=== PATIENT | female | born 1940 | race Asian ===

== ENCOUNTER 2017-02-22 06:06 | Day surgery (SDC) | payer MEDICARE, OTHER ==
[~2017-02-22] VITALS: Ht 139.7 cm; Wt 55.0 kg
[~2017-02-22 06:06] MED LIST: BENZ-26 PO; CLAR250T3 PO
[2017-02-22] MEDS ORDERED: SODIUM CHLORIDE 0.9% 1,000 ML IV ONE ×2 (06:21→06:30)
[2017-02-22] MEDS ORDERED: MECL-111 PO (07:01)
[2017-02-22] MEDS ORDERED: CLOP75 PO (07:01)
[2017-02-22] MEDS ORDERED: CIPR500S4 PO (07:01)
[2017-02-22] MEDS ORDERED: BUDE10.2 IH (07:01)
[2017-02-22] MEDS ORDERED: MONT10TA21 PO (07:01)
[2017-02-22] MEDS ORDERED: ACET500C4 PO (07:01)
[2017-02-22] MEDS ORDERED: CELE200 PO (07:01)
[2017-02-22] MEDS ORDERED: BACL10TA PO (07:01)
[2017-02-22] MEDS ORDERED: BENZ200C45 PO (07:01)
[2017-02-22] MEDS ORDERED: MIDAZOLAM HCL 2 MG/2 ML VIAL ONE (07:26)
[2017-02-22] MEDS ORDERED: FentaNYL CITRATE-PF 100 MCG/2 ML VIAL ONE (07:26)
[2017-02-22] MEDS ORDERED: MethylPREDNISolone SOD SUCC 125 MG/2 ML VIAL IVP ONE (08:45)
[2017-02-22] MEDS ORDERED: MethylPREDNISolone SOD SUCC 125 MG/2 ML VIAL ONE (09:21)
[2017-02-22] MEDS ORDERED: BENZOCAINE 20% 50 MCG/SPRAY 57 GM TP ONE (10:00)
[2017-02-22] MEDS ORDERED: LIDOCAINE HCL 2% 30 ML JELLY TP ONE (10:00)
[2017-02-22] MEDS ORDERED: LIDOCAINE HCL 4% 50 ML SOLUTION TP ONE (10:00)
[2017-02-22] MEDS ORDERED: OXYGEN THERAPY IH SCH (20:00)
== END 2017-02-22 10:35 | disposition home or self-care (01) ==
LOC: SURGERY 06:06
PROVIDERS: ATTEND Internal Medicine Critical Care Medicine
DX: J38.4 Edema of larynx (principal); B37.0 Candidal stomatitis; J44.9 Chronic obstructive pulmonary disease, unspecified; J45.909 Unspecified asthma, uncomplicated; Z90.49 Acquired absence of other specified parts of digestive tract
CPT/HCPCS: 31623; 31624; 71010; 87015 ×2; 87070; 87101; 87205; 87220; 94640; J2250; J2930; J3010; J7030; 88108; 88312